=== PATIENT | female | born 1975 | race Caucasian/White ===

== ENCOUNTER 2017-12-09 12:20 | Emergency (ER) | payer BC, SELFPAY ==
[~2017-12-09] VITALS: Ht 162.6 cm; Wt 54.9 kg
[2017-12-09 13:24] VITALS: BP 119/72
== END 2017-12-09 13:41 | disposition home or self-care (01) ==
LOC: ED 13:00
DX: J20.8 Acute bronchitis due to other specified organisms (principal); J00 Acute nasopharyngitis [common cold]; B97.89 Other viral agents as the cause of diseases classified elsewhere
CPT/HCPCS: 71046; 99284; J7512

== ENCOUNTER 2019-02-09 23:11 | Emergency (ER) | payer BC ==
[~2019-02-09] VITALS: Ht 162.6 cm; Wt 55.0 kg
[2019-02-09 23:12] VITALS: BP 158/90
--- NOTE | 2019-02-09 23:27 | NUR ---
assessement made. chart up for MD to see.
[2019-02-09] MEDS ORDERED: LORazepam 1MG TABLET ONE (23:47)
--- NOTE | 2019-02-10 00:14 | NUR ---
BREAK RN: Pt left after discussing d/c information with provider, but prior to receiving discharge paperwork from RN.
[2019-02-10] MEDS ORDERED: LORazepam 1MG TABLET PO ONE (00:30)
== END 2019-02-10 00:17 | disposition home or self-care (01) ==
LOC: ED 23:57
DX: R07.9 Chest pain, unspecified (principal); Z72.9 Problem related to lifestyle, unspecified; F41.1 Generalized anxiety disorder
CPT/HCPCS: 93005; 99283; 99284

== ENCOUNTER 2020-08-29 13:28 | Emergency (ER) | payer SELFPAY ==
[~2020-08-29] VITALS: Ht 162.6 cm; Wt 61.4 kg
[2020-08-29 13:40] VITALS: BP 148/82
[2020-08-29] MEDS ORDERED: DIPH,PERTUSS(ACELL),TET VAC/PF 0.5 ML IM-VACC ONE ×2 (14:30→15:03)
[2020-08-29] MEDS ORDERED: MUPIROCIN OINT 2%, 22GM TP SCH (14:30)
--- NOTE | 2020-08-29 15:00 | NUR ---
ointment reQ FROM PHARM.
--- NOTE | 2020-08-29 15:12 | NUR ---
called pharm to [facility]. as
== END 2020-08-29 15:21 | disposition home or self-care (01) ==
LOC: ED 15:00
DX: L73.9 Follicular disorder, unspecified (principal); L08.89 Other specified local infections of the skin and subcutaneous tissue
CPT/HCPCS: 90471; 90715; 99283